=== PATIENT | female | born 1950 | race Two or more races ===

== ENCOUNTER 2021-11-05 07:43 | Outpatient (CLI) | payer OTHER | END 2021-11-05 07:49 | disposition home or self-care (01) | LOC: NUCLEAR 07:43 | PROVIDERS: ATTEND Specialist | DX: C53.1 Malignant neoplasm of exocervix (principal) | CPT/HCPCS: 78812; A9552 ==

== ENCOUNTER 2021-12-05 10:15 | Inpatient (IN) | payer OTHER ==
[~2021-12-05] VITALS: Ht 160 cm; Wt 55.3 kg
[2021-12-06] MEDS ORDERED: ULTRAM50 MG PO (08:17)
[2021-12-06] MEDS ORDERED: LYRICA150 MG PO (08:17)
== END 2021-12-14 11:32 | disposition home or self-care (01) | DRG 734 ==
LOC: SURH 12-06 10:15 → O/R 12-12 11:16 → OB/GYN 12-12 11:16
PROVIDERS: ADMIT Specialist; ATTEND Specialist
PROC: 07TD0ZZ Resection of Aortic Lymphatic, Open Approach (ICD-10-PCS; 2021-12-12)
PROC: 0UT90ZZ Resection of Uterus, Open Approach (ICD-10-PCS; 2021-12-12)
PROC: 0UT70ZZ Resection of Bilateral Fallopian Tubes, Open Approach (ICD-10-PCS; 2021-12-12)
PROC: 0UT20ZZ Resection of Bilateral Ovaries, Open Approach (ICD-10-PCS; 2021-12-12)
PROC: 07TC0ZZ Resection of Pelvis Lymphatic, Open Approach (ICD-10-PCS; principal; 2021-12-12 15:30)
DX: C54.1 Malignant neoplasm of endometrium (principal); C77.5 Secondary and unspecified malignant neoplasm of intrapelvic lymph nodes; D27.0 Benign neoplasm of right ovary; Z20.822 Contact with and (suspected) exposure to COVID-19